=== PATIENT | female | born 1965 | race Caucasian/White ===

== ENCOUNTER 2016-06-26 06:04 | Day surgery (SDC) | payer BC ==
[2016-06-19 15:53] LABS: BASOPHILS 0.3 %; BASOPHILS ABSOLUTE 0.03 10/3/uL (0.0-0.16); EOSINOPHILS ABSOLUTE 0.09 10/3/uL (0.0-0.53); HEMATOCRIT 39.8 % (36.0-48.0); HEMOGLOBIN 13.7 g/dL (12.0-16.0); IMMATURE GRANULOCYTES 0.2 %; IMMATURE GRANULOCYTES ABSOLUTE 0.02 10/3/uL (0.0-0.11); LYMPHOCYTES 20.2 %; LYMPHOCYTES ABSOLUTE 1.84 10/3/uL (0.67-4.30); MEAN CORPUS HGB CONC 34.4 g/dL (32.0-36.0); MEAN CORPUSCULAR HEMOGLOB 31.1 pg (26.0-34.0); MEAN CORPUSCULAR VOLUME 90.5 fL (80-100); MEAN PLATELET VOLUME 10.4 fL (9.2-13.0); MONOCYTES 6.5 %; MONOCYTES ABSOLUTE 0.59 10/3/uL (0.21-1.20); NEUTROPHILS 71.8 %; NEUTROPHILS ABSOLUTE 6.53 10/3/uL (2.02-8.40); PLATELET COUNT 267 10/3/uL (150-400); RBC DISTRIBUTION WIDTH 12.3 % (12.0-16.0); WHITE BLOOD CELLS 9.1 10/3/uL (4.5-10.5)
[2016-06-19 15:55] LABS: BUN (BLOOD UREA NITROGEN) 19 MG/DL (6-23); CALCIUM, SERUM 8.7 MG/DL (8.5-10.4); CHLORIDE, SERUM 108 MMOL/L (96-112); CO2 (CARBON DIOXIDE) 26 MMOL/L (24-34); CREATININE 0.83 MG/DL (0.55-1.02); GFR AFRICAN AMERICAN 95 ML/MIN (>=60); GFR NON AFRICAN AMERICAN 82 ML/MIN (>=60); GLUCOSE, SERUM 95 MG/DL (60-99); SODIUM, SERUM 142 MMOL/L (135-148)
--- NOTE | ~2016-06-26 | OP ---
Record Of Operation [facility] [address] [place]. [address] NAME: ROCCO LYONS : 67 STATUS : [facility]#: [id number] AGE: 51 ADM/REG DATE : 06/26/16 MR#: [id number] REPORT SERV DATE: 06/28/16 DICTATED BY: AGUSTO PETERSON DATE: 06/27/16 REPORT STATUS : Draft TRANSCRIBED BY: MODJoan DATE: 06/27/16 DATE OF PROCEDURE: 06/26/2016 PREOPERATIVE DIAGNOSIS: Bilateral ovarian masses. POSTOPERATIVE DIAGNOSIS: Bilateral hydrosalpinx, left greater than right. PROCEDURE: Laparoscopic hysterectomy, BSO for specimen greater than 250 g, CPT code 18381. SURGEON: Agusto Peterson M.D. ESTIMATED BLOOD LOSS: 25 mL. FLUIDS IN: 1800 mL of crystalloid. URINE OUTPUT: 100 mL. ANESTHESIA: General endotracheal. INDICATIONS AND FINDINGS: This is a 51-year-old female, who presents with bilateral ovarian masses and a normal CA-125. She was taken to the operating room, and found to have a very large hydrosalpinx measuring approximately 15 cm. This was drained in the abdomen with minimal spill. It was taken through the vagina and examined on the back table and appeared to be consistent with a benign hydrosalpinx. The larger of the two hydrosalpinx was on the left. She also had a smaller hydrosalpinx, which was removed intact, also examined on the back table, on the right. The uterus appeared to be normal. Postprocedure, a cystoscopy was performed with excellent bilateral ureteral jets. No evidence of bladder defect. Prior to induction of anesthesia, the patient was treated with Lovenox for DVT prophylaxis. She was also given prophylactic antibiotics. PROCEDURE: The patient was taken to the operating room. She was placed in supine position for administration of general anesthesia. She was then placed in dorsal lithotomy position and prepped and draped in usual sterile fashion. A LUCINDA uterine manipulator was placed through the uterine cervix and out the fundus, and a MICH ring was sutured to the patient's cervix. Our attention was then turned towards the anterior abdominal wall where an incision was made approximately 25 cm above the umbilicus and taken down to the underlying layer of fascia. The fascia was grasped with two sutures of 0 Vicryl, tented up and entered sharply. The perineum was then tented up and entered sharply, and a laparoscopic trocar was placed under direct visualization. The abdominal cavity was insufflated with CO2. Two additional 8 mm trocars were placed, one additional 12 mm trocar was placed. The patient was then docked to the laparoscopic robotic instrument the remainder the procedure was performed via the da Sandhya. The above findings were noted. Pelvic washings were taken. The retroperitoneal spaces were opened via the round ligaments, which were grasped with bipolar cautery, cauterized and transected bilaterally. The uterine arteries were identified at their origin. The hemoclips were placed to ensure long-term hemostasis. The gonadal vessels were isolated. Hemoclips were placed to ensure long-term hemostasis. They were Record Of Operation [address] [place]. [address] NAME: ROCCO LYONS : 67 STATUS : [facility] [place] PAT#: [id number] AGE: 51 ADM/REG DATE : 06/26/16 MR#: [id number] REPORT SERV DATE: 06/28/16 DICTATED BY: AGUSTO PETERSON DATE: 06/27/16 REPORT STATUS : Draft TRANSCRIBED BY: JULIAN DATE: 06/27/16 then coagulated and transected bilaterally. The uterosacral cardinal complex was then taken down with unipolar cautery, and a circumferential incision was made around the cervix and vagina, and the larger hydrosalpinx on the left, it was drained as so can be taken through the vagina with minimal spill. The vaginal cuff was then closed with a running stitch of #1 PDS V-Loc. The pelvis was irrigated with copious amounts of warm saline. All pedicles were inspected and found to be hemostatic. The laparoscopic instruments were removed. The gas expelled from the abdomen. The initial incision was closed with 0 Vicryl at the fascia. The remainder of the incisions were closed with 4-0 Vicryl at the skin and Dermabond was placed. Postprocedure, a cystoscopy was performed with excellent bilateral ureteral jets. No evidence of bladder defect. At the completion of the procedure, the anesthesia was reversed. The patient was extubated and brought to the recovery room in stable condition. KADEN/JULIAN Agusto Peterson M.D. / [id number] CC: Nubia Shaw Jr., M.D.
--- NOTE | ~2016-06-26 | OP ---
Record Of Operation [facility] [place] [address] [place], [place]. [address] NAME: ROCCO LYONS : 67 STATUS : [facility]#: [id number] AGE: 51 ADM/REG DATE : 06/26/16 MR#: [id number] REPORT SERV DATE: 06/28/16 DICTATED BY: AGUSTO PETERSON DATE: 06/27/16 REPORT STATUS : Draft TRANSCRIBED BY: JULIAN DATE: 06/27/16 DATE OF PROCEDURE: NO DICTATION KADEN/JULIAN Agusto Peterson M.D. / [id number]
[~2016-06-26 06:04] MED LIST: *DENIES
== END 2016-06-26 21:06 | disposition home or self-care (01) ==
LOC: SDC 06:04
PROVIDERS: Obstetrics & Gynecology Gynecologic Oncology
PROC: 0UT24ZZ Resection of Bilateral Ovaries, Percutaneous Endoscopic Approach (ICD-10-PCS; 2016-06-26)
PROC: 0UT74ZZ Resection of Bilateral Fallopian Tubes, Percutaneous Endoscopic Approach (ICD-10-PCS; 2016-06-26)
PROC: 8E0W4CZ Robotic Assisted Procedure of Trunk Region, Percutaneous Endoscopic Approach (ICD-10-PCS; 2016-06-26)
PROC: 0UT94ZZ Resection of Uterus, Percutaneous Endoscopic Approach (ICD-10-PCS; principal; 2016-06-26 07:00)
PROC: 0UTC4ZZ Resection of Cervix, Percutaneous Endoscopic Approach (ICD-10-PCS; 2016-06-26 07:00)
DX: Q51.3 Bicornate uterus (principal); N80.0 Endometriosis of uterus; D26.1 Other benign neoplasm of corpus uteri; D27.1 Benign neoplasm of left ovary; D27.0 Benign neoplasm of right ovary; N83.12 Corpus luteum cyst of left ovary; N83.11 Corpus luteum cyst of right ovary; N70.11 Chronic salpingitis; M19.90 Unspecified osteoarthritis, unspecified site; H52.209 Unspecified astigmatism, unspecified eye; Z88.5 Allergy status to narcotic agent; Z91.048 Other nonmedicinal substance allergy status; Z98.890 Other specified postprocedural states
CPT/HCPCS: 36415; 71020; 80048; 84703; 85025; 86850; 86900; 86901; 88112; 88305; 88307; 88342; 93005; A9270-GY; J0694; J1885; J2250; J2405; J2710; J2795; J3010